=== PATIENT | male | born 1950 | race African-American/Black ===

== ENCOUNTER 2021-09-07 10:51 | Emergency (ER) | payer SELFPAY ==
[~2021-09-07] VITALS: Ht 175.3 cm; Wt 88.0 kg
[2021-09-07 11:00] VITALS: BP 142/90
[2021-09-07 12:45] LABS: BASOPHILS % 0.5 % (0.0-2.0); EOSINOPHILS % 2.3 % (0.0-5.0); HEMATOCRIT. 41.1 % (42.0-52.0); HEMOGLOBIN. 14.2 g/dL (14.0-18.0); LYMPHOCYTES % 38.8 % (20.0-50.0); MEAN CORPUSCULAR HEMOGLOBIN 29.1 pg (28.0-32.0); MEAN CORPUSCULAR VOLUME 84.4 fL (80.0-94.0); MONOCYTES % 6.8 % (2.0-8.0); NEUTROPHILS % 51.6 % (40.0-76.0); PLATELET 274 x1000/uL (130-400); RED BLOOD CELL COUNT 4.87 mill/uL (4.7-6.1); RED CELL DISTRIBUTION WIDTH 13.1 % (11.6-14.6)
[2021-09-07 12:52] LABS: CHLORIDE 105 mEq/L (98-107)
[2021-09-07 13:01] LABS: PROTHROMBIN TIME 10.9 sec (9.6-11.0)
== END 2021-09-07 14:40 | disposition home or self-care (01) ==
LOC: ER 11:08
DX: R04.2 Hemoptysis (principal); K05.10 Chronic gingivitis, plaque induced; I10 Essential (primary) hypertension; Z98.890 Other specified postprocedural states
CPT/HCPCS: 36415; 80053; 85025; 99283